=== PATIENT | female | born 1995 | race Two or more races ===

== ENCOUNTER 2019-12-04 19:19 | Emergency (ER) | payer SELFPAY ==
[~2019-12-04] VITALS: Ht 154.9 cm; Wt 77.2 kg
[2019-12-04 19:32] VITALS: BP 131/73
--- NOTE | 2019-12-04 19:57 | PHYS DOC ---
Past Medical History Past Medical History: No Pertinent History Past Surgical History: No Surgical History Smoking Status: Never Smoker Alcohol Use: None Adult General Chief Complaint Chief Complaint: ITCHING HPI HPI Patient is a 24 year old female 1 para 0 currently 33 weeks presenting with itching throughout her body including hands and feet that begun yesterday. Patient denies using anything new. reports the itching has been going on for a while. Patient reports following up with one of the local clinics for OB care. Review of Systems Review of Systems Constitutional: Denies fever or chills [] Eyes: Denies change in visual acuity, redness, or eye pain [] HENT: Denies nasal congestion or sore throat [] Respiratory: Denies cough or shortness of breath [] Cardiovascular: No additional information not addressed in HPI [] GI: Reports being Denies abdominal pain, nausea, vomiting, bloody stool s or diarrhea [] : Denies dysuria or hematuria [] Musculoskeletal: Denies back pain or joint pain [] Integument: Reports rash Neurologic: Denies headache, focal weakness or sensory changes [] All other systems were reviewed and found to be within normal limits, except as documented in this note. Allergies Allergies Allergies Coded Allergies Type Severity Reaction Last Updated Verified No Known Drug Allergies 12/04/19 No Physical Exam Physical Exam Constitutional: Well developed, well nourished, no acute distress, non-toxic appearance. [] HENT: Normocephalic, atraumatic, bilateral external ears normal, oropharynx moist, no oral exudates, nose normal. [] Eyes: PERRLA, EOMI, conjunctiva normal, no discharge. [] Neck: Normal range of motion, no tenderness, supple, no stridor. [] Cardiovascular:Heart rate regular rhythm, no murmur [] Lungs & Thorax: Bilateral breath sounds clear to auscultation [] Abdomen: Gravid abdomen. Bowel sounds normal, soft, no tenderness, no masses, no pulsatile masses. [] Skin: Warm, dry, no erythema, no rash. No rashes noted on the palms or feet Back: No tenderness, no CVA tenderness. [] Extremities: No tenderness, no cyanosis, no clubbing, ROM intact, no edema. [] Neurologic: Alert and oriented X 3, normal motor function, normal sensory function, no focal deficits noted. [] Psychologic: Affect normal, judgement normal, mood normal. [] Current Patient Data Vital Signs Vital Signs Date Time Temp Pulse Resp B/P (MAP) Pulse Ox O2 Delivery O2 Flow Rate FiO2 12/04/19 19:32 98.3 83 16 131/73 (92) 98 Room Air 98.3 EKG EKG [] Radiology/Procedures Radiology/Procedures [] Course & Med Decision Making Course & Med Decision Making Pertinent Labs and Imaging studies reviewed. (See chart for details) This is a 24-year-old female patient 1 para 0 currently 33 weeks presenting to the ED today with itching throughout her body that began yesterday though reports patient has been itching for a while. Patient was discharged with prednisone. Encouraged to follow up with the OUTPATIENT PSYCHIATRIST and see if they need to do any further testing regarding this. She'll be discharged to the OB floor for monitoring. Dragon Disclaimer Dragon Disclaimer This electronic medical record was generated, in whole or in part, using a voice recognition dictation system. Departure Departure Impression: Primary Impression: Itching Disposition: 01 HOME, SELF-CARE Condition: STABLE Referrals: TREASURE BANGURA MD follow up with your local clinic next week Patient Instructions: Itching-Brief Additional Instructions: You were evaluated in the emergency room for itching. Please follow-up with your OUTPATIENT PSYCHIATRIST/local clinic in the course of next week. Scripts Prednisone (PREDNISONE) 50 Mg Tablet 1 TAB PO DAILY, #5 TAB Prov: JOAQUIN NAVARRO APRN 12/04/19 JOAQUIN NAVARRO APRN Dec 04, 2019 19:56
[2019-12-04] MEDS ORDERED: PRED50TA PO (20:02)
== END 2019-12-04 20:08 | disposition home or self-care (01) ==
LOC: ER 19:19
DX: O26.893 Other specified pregnancy related conditions, third trimester (principal); L29.9 Pruritus, unspecified; Z3A.33 33 weeks gestation of pregnancy
CPT/HCPCS: 99283